=== PATIENT | female | born 1950 | race Caucasian/White ===

== ENCOUNTER 2018-02-23 17:18 | Outpatient (CLI) | payer MEDICARE, OTHER ==
--- NOTE | 2018-02-23 19:32 | Diagnostic Imaging Report ---
ISMAEL HOLDEN [facility] [address] [facility].[address] [id number] Report Submission Date: Feb 23, 2018 5:43:39 PM CDT Patient Study Name: [facility] Date: Feb 23, 2018 5:20:03 PM CDT Modality Type: DX Gender: F Description: CHEST : 46 Institution: [facility] Physician: ISMAEL HOLDEN Chest, PA and lateral. HISTORY Cough, wheezing. FINDINGS No infiltrate, effusion or pneumothorax is present. Heart size and pulmonary vascularity are normal. There is calcification in the thoracic aorta. IMPRESSION No active pulmonary disease. Electronically signed on Feb 23, 2018 5:43:39 PM CDT by: Onel VALDIVIA
== END 2018-02-23 17:20 ==
LOC: RAD 17:18
PROVIDERS: ATTEND Family Medicine
DX: R05 Cough (principal); R06.2 Wheezing
CPT/HCPCS: 71046